=== PATIENT | female | born 1990 | race Two or more races ===

== ENCOUNTER 2021-02-27 19:40 | Emergency (ER) | payer MEDICAID ==
[~2021-02-27] VITALS: Ht 154.9 cm; Wt 54.4 kg
--- NOTE | 2021-02-27 19:52 | NUR ---
PT AMBULATED TO ER STEADY GAIT, C/O COUGH AND VELASQUEZ AND TESTED + FOR COVID. NO SOB OR LABORED BREATHING, AFEBRILE. A/O X4.
--- NOTE | 2021-02-27 20:02 | NUR ---
DR. VELAZQUEZ AT BEDSIDE, MSE IN PROGRESS.
[2021-02-27] MEDS ORDERED: OXYCODONE/APAP 5-325 MG TABLET PO ONE (20:15)
[2021-02-27] MEDS ORDERED: DEXAMETHASONE SOD PHOSPHATE 4 MG INJ IV ONE (20:15)
[2021-02-27 20:24] LABS: HEMATOCRIT 40.8 % (31.2-41.9); MEAN CORPUSCULAR HEMOGLOBIN 32.8 uug (24.7-32.8); MEAN CORPUSCULAR VOLUME 95.8 fL (75.5-95.3); PLATELET COUNT (AUTO) 249 K/uL (179-408)
[2021-02-27] MEDS ORDERED: DEXAMETHASONE SOD PHOSPHATE 4 MG INJ ONE (20:25)
[2021-02-27] MEDS ORDERED: OXYCODONE/APAP 5-325 MG TABLET ONE (20:25)
[2021-02-27 20:31] LABS: CREATININE 0.8 mg/dL (0.6-1.3); POTASSIUM 3.9 mmol/L (3.5-5.1)
--- NOTE | 2021-02-27 20:45 | NUR ---
XRAY AT BEDSIDE.
[2021-02-27] MEDS ORDERED: OXYC-128 PO (21:18)
[2021-02-27 21:35] VITALS: BP 122/62
== END 2021-02-27 21:35 | disposition home or self-care (01) ==
LOC: ER 19:50
DX: U07.1 COVID-19 (principal); Z88.0 Allergy status to penicillin
CPT/HCPCS: 36415; 71045; 80048; 85025; 85379; 87426; 96374; 99284; J1100; A4663